=== PATIENT | male | born 1950 | race Caucasian/White ===

== ENCOUNTER 2022-11-01 12:44 | Outpatient (AMB) | payer MEDICARE, SELFPAY ==
--- NOTE | 2022-11-01 12:52 | MHC.OFFVIS ---
Intake Vital Signs 11/01/22 12:54 Height 5 ft 7 in Weight 194 lb BMI 30.4 BP 128/88 Blood Pressure Location Rt brachial Position Sitting Intake Visit Reasons: NPV-VISION DISTURBANCE POST STROKE-lvm Intake Note: Patient presents for new patient evaluation Allergies shrimp Allergy (Severe, Verified 11/01/22 12:56) Anaphylaxis escitalopram [From Lexapro] Allergy (Unknown, Verified 11/01/22 12:56) Unknown metronidazole [From Flagyl] Allergy (Unknown, Verified 11/01/22 12:56) Vomiting Penicillins Allergy (Unknown, Verified 11/01/22 12:56) Unknown isosorbide mononitrate Allergy (Unknown, Uncoded 11/01/22 12:56) Dizziness Amlodipine Besylate-Atorvastatin Adverse Reaction (Unknown, Uncoded 11/01/22 12:56) Weakness statins Adverse Reaction (Unknown, Uncoded 11/01/22 12:56) Stomach Upset Medication List - Last Reconciled 11/01/22 by Britney Shepherd MD aspirin 81 mg PO DAILY buspirone 10 mg PO TID clopidogrel 75 mg PO DAILY gemfibrozil 600 mg PO BID isosorbide dinitrate 5 mg PO BID lisinopril 5 mg PO DAILY metoprolol tartrate 100 mg PO BID nitroglycerin 0 mg sublingual omeprazole 20 mg PO DAILY HPI HPI Comments History of Present Illness Details 72y/o male with complex medical history comes for neurological evaluation. His first stroke was 4 years ago during CABG. His second stroke was 2 1/2 years ago- started with visual hallucinations. 3 rd stroke was 1 1 /2 years ago - he woke up in the middle of the night with right UE weakness . He was admitted at [facility]. MRI Brain 02/24/21- Acute Subacute right parietal and posterior insular infarct. 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 His main concerns are vertigo, feeling off balance etc.He tried vestibular rehab twice and did not help. He uses a walker and has had few falls. He denies sleep issues and does not want to address the possibility of sleep apnea. He denies hallucinations He reports slow in recalling. [facility] Medical History (Updated 11/01/22 @ 14:01 by Britney Shepherd MD) Anxiety (Unknown) Arthritis Balance problem Brain neoplasm CAD (coronary artery disease) Carotid artery stenosis CVA (cerebral vascular accident) Depression GERD (gastroesophageal reflux disease) HTN (hypertension) Hyperlipidemia IBS (irritable bowel syndrome) TIA (transient ischemic attack) Vertigo as late effect of cerebrovascular accident (CVA) Surgical History H/O angioplasty H/O brain surgery H/O heart surgery H/O: knee surgery S/P CABG x 2 Family History Mother CAD (coronary artery disease) Cerebrovascular accident (CVA) Father CAD (coronary artery disease) COPD (chronic obstructive pulmonary disease) Brother CAD (coronary artery disease) Depression Diabetes Hypertension Sister Hypertension Sister Anxiety CAD (coronary artery disease) Cancer Sister Depression Diabetes Multiple sclerosis Review of Systems Const Reports weakness ENT Reports dysphagia, Reports vertigo, Reports dry mouth and Reports disequilibrium Card Reports dyspnea Resp Reports dyspnea GI Reports dysphagia Musc Reports abnormal gait and Reports arthralgias Neuro Reports abnormal gait, Reports vertigo, Reports disequilibrium and Reports weakness Psych Reports anxiety Physical Exam Vital Signs: Last Vital Signs BP 128/88 11/01/22 12:54 BMI result Body Mass Index 30.4 Const General: cooperative and no acute distress Nutritional Appearance: average body habitus Orientation/consciousness: patient oriented x3 Eyes Pupils: Equal, round and reactive pupils present Neuro Other: Right LMN facial paralysis - no movement . asymmetrical face , right eye vertical deviation speech slurred FN- difficulty with depth perception, jonn past pointing Power 4/5 in all Tone mildly increased weakness of left face FFM and foot taps decreased jonn No nystagmus EOM- full Gait without walker mildly wide based, off balance General: patient oriented x3 and moves all extremities Cranial nerves: Yes Equal, round and reactive pupils present, Yes Nystagmus not present and Yes Midline tongue present Cognition (Neuro): normal cognition Deep tendon reflexes (DTR's): Right triceps reflex intensity grade: 1+, Left triceps reflex intensity grade: 1+, Rt Biceps (C5, C6): 1+, Left biceps reflex intensity grade: 1+, Right brachioradialis reflex intensity grade: 1+, Left brachioradialis reflex intensity grade: 1+, Right patellar reflex intensity grade: 1+ and Left patellar reflex intensity grade: 1+ Orientation What is the (year) (season) (date) (day) (month)?: year, season, date, day and month Where are we (state) (county) (town or city) (hospital) (floor)?: state, county, town or city, hospital/clinic and floor Registration Name of 3 unrelated objects clearly and slowly, then ask patient to repeat all 3 of them. (1st repeat determines score. Make sure they can repeat all three): object 1, object 2 and object 3 Attention & Calculation (CHOOSE ONE) Spell WORLD backwards (DLROW): 5 letters Recall Ask patient to repeat the 3 items from question #3.: object 1 and object 2 Language Show patient a wristwatch & ask what it is. Repeat for pencil.: watch and pencil Ask the patient to repeat the phrase 'No ifs, ands, or buts' after you.: correct Ask the patient to 'take a piece of paper with their right hand' 'fold paper in half' 'place paper on floor': take paper in right hand, fold paper in half and place paper on floor Print the sentence 'CLOSE YOUR EYES' on a piece. If patient actually closes eyes then score.: followed written direction Give patient a blank piece of paper & ask to write a sentence. Score if it contains a noun & verb.: sentence contains subject and verb Ask patient to copy figure of intersecting pentagons exactly. Score if all 10 angles & 2 intersects are included.: all 10 angles present & 2 are intersected Score Score: 29 Results Reviewed Results Reviewed: MRI Brain 02/24/21- Acute Subacute right parietal and posterior insular infarct. 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 Assessment & Plan Assessment & Plan (1) Balance problem: Code(s): R26.89 - Other abnormalities of gait and mobility (2) Vertigo as late effect of cerebrovascular accident (CVA): Code(s): I69.398 - Other sequelae of cerebral infarction; R42 - Dizziness and giddiness (3) CVA (cerebral vascular accident): Code(s): I63.9 - Cerebral infarction, unspecified Plan His vertigo and disequilibrium are multifactorial - brain neoplasm ,CVAs etc. I will refer him to Vision therapy for his balance an depth perception issues. ENT eval continue plavix 75mg qd Declines sleep study Orders: Orders OT Evaluation and Treatment Today I63.9 - Cerebral infarction, unspecified, I69.398 - Other sequelae of cerebral infarction, R42 - Dizziness and giddiness Coding Level of Care Code New Pt Level 4 (17795) Diagnoses Balance problem R26.89 Vertigo as late effect of cerebrovascular accident (CVA) I69.398; R42 CVA (cerebral vascular accident) I63.9
[2022-11-01 12:54] VITALS: BP 128/88; BMI 30.4
== END 2022-11-01 14:00 | disposition home or self-care (01) ==
PROVIDERS: Visit Provider Psychiatry & Neurology Neurology
DX: R26.89 Other abnormalities of gait and mobility (principal); I69.398 Other sequelae of cerebral infarction; R42 Dizziness and giddiness; R29.6 Repeated falls
CPT/HCPCS: 99204

== ENCOUNTER → 2022-11-01 12:44 | Outpatient (BNVA) | payer MEDICARE, SELFPAY | PROVIDERS: Visit Provider Psychiatry & Neurology Neurology | DX: I63.9 Cerebral infarction, unspecified (principal); I69.398 Other sequelae of cerebral infarction; H53.9 Unspecified visual disturbance; R26.89 Other abnormalities of gait and mobility; R42 Dizziness and giddiness; H54.61 Unqualified visual loss, right eye, normal vision left eye; Z85.841 Personal history of malignant neoplasm of brain | CPT/HCPCS: 99202 ==